=== PATIENT | male | born 1995 | race Two or more races ===

== ENCOUNTER 2019-08-15 17:01 | Emergency (ER) | payer SELFPAY ==
--- NOTE | 2019-08-15 17:20 | ER Document Report ---
ED Medical Screen (RME) - General Chief Complaint: Psych Problem Stated Complaint: POSSIBLE ALLERGIC REACTION Time Seen by Provider: 08/15/19 17:12 Mode of Arrival: Ambulatory Information source: Patient Notes: 24-year-old male patient with multiple psychiatric diagnoses presenting to the emergency department with "not feeling right". Patient's girlfriend dropped him off at the front door stating that he was unresponsive and may be having an allergic reaction to something. Patient reports he is felt excessively tired lately and has had nausea, vomiting, diarrhea and passive suicidal thoughts. He has not thought about plan. He is slow to respond and not very interactive. He has a very flat affect. He denies any homicidal ideation. I have greeted and performed a rapid initial assessment of this patient. A comprehensive ED assessment and evaluation of the patient, analysis of test results and completion of the medical decision making process will be conducted by additional ED providers. I have specifically instructed the patient or family members with the patient to immediately return to any nursing staff should anything change in the patient's condition or with their chief complaint. - Related Data Allergies/Adverse Reactions: No Known Allergies Allergy (Unverified 08/15/19 17:07) Physical Exam - Vital signs Vitals: Temp Pulse Resp BP Pulse Ox 98.2 F 118 H 16 127/74 H 98 08/15/19 17:06 08/15/19 17:06 08/15/19 17:06 08/15/19 17:06 08/15/19 17:06 Course - Vital Signs Vital signs: Temp Pulse Resp BP Pulse Ox 98.2 F 118 H 16 127/74 H 98 08/15/19 17:06 08/15/19 17:06 08/15/19 17:06 08/15/19 17:06 08/15/19 17:06
--- NOTE | 2019-08-15 17:26 | ER Document Report ---
ED Allergic Reaction - General Mode of Arrival: Ambulatory <ORVILLE CRESPO - Last Filed: 08/15/19 17:25> <SAAD ATWOOD - Last Filed: 08/15/19 19:22> - General Chief Complaint: Psych Problem Stated Complaint: POSSIBLE ALLERGIC REACTION Time Seen by Provider: 08/15/19 17:12 - HPI Notes: Chief complaint: Unsteady gait, slurred speech and mild confusion 24-year-old male followed by [facility] with history of PTSD and ADHD seen now after being encouraged to come here by his girlfriend because she notes that he has developed an unsteady gait, slurred speech and mild confusion over the last several days. He has been on Lexapro and Adderall long-term. He was apparently recently prescribed Ambien 10 mg and filled a prescription for 30 tablets on August 09. Girlfriend indicates that there were only about 8 pills left in the bottle this morning and she feels that he has been abusing the medication. The remainder the pills were dumped into the toilet this morning. Patient denies any suicidal intent but says that he " just wanted to get some better sleep for the last several nights". Patient denies any abuse of street drugs. He denies use of alcohol. He denies any auditory visual hallucinations. (SAAD ATWOOD) - Related Data Allergies/Adverse Reactions: No Known Allergies Allergy (Unverified 08/15/19 17:07) Past Medical History - General Information source: Patient - Social History Smoking Status: Never Smoker Frequency of alcohol use: None Patient has suicidal ideation: Yes Patient has homicidal ideation: No <ORVILLE CRESPO - Last Filed: 08/15/19 17:25> - General Information source: Patient, Friend - Social History Family History: Reviewed & Not Pertinent <SAAD ATWOOD - Last Filed: 08/15/19 19:22> Review of Systems <SAAD ATWOOD - Last Filed: 08/15/19 19:22> - Review of Systems Notes: Constitutional: Negative for fever. HENT: Negative for sore throat. Eyes: Negative for visual changes. Cardiovascular: Negative for chest pain. Respiratory: Negative for shortness of breath. Gastrointestinal: Negative for abdominal pain, vomiting or diarrhea. Genitourinary: Negative for dysuria. Musculoskeletal: Negative for back pain. Skin: Negative for rash. Neurological: As per HPI. 10 point ROS negative except as marked above and in HPI. (SAAD ATWOOD) Physical Exam <SAAD ATWOOD - Last Filed: 08/15/19 19:22> - Vital signs Vitals: Temp Pulse Resp BP Pulse Ox 98.2 F 118 H 16 127/74 H 98 08/15/19 17:06 08/15/19 17:06 08/15/19 17:06 08/15/19 17:06 08/15/19 17:06 - Notes Notes: GENERAL: Well-developed well-nourished appearing mildly ataxic and exhibiting mild slurring of speech. SKIN: Good turgor no rashes. HEAD: Normocephalic atraumatic. EYES: PERRLA. EOMI. Conjunctivae and sclerae clear. EARS: CANALS AND TMS CLEAR. NOSE: CLEAR. MOUTH: Moist mucosa. Good dentition. No stridor or edema. No drooling. NECK: Supple. No masses or thyromegaly. No adenopathy. Carotids 2+ without bruits. No JVD. BACK: Symmetrical without tenderness. CHEST: Respirations unlabored. Breath sounds clear and symmetrical. HEART: Regular rhythm. No murmur gallop or rub. ABDOMEN: Soft nontender without masses, organomegaly or rebound. Bowel sounds normally active. No bruits. GENITALIA: Deferred. EXTREMITIES: No edema. No calf tenderness. Cap refill less than 1.5 seconds. Dorsalis pedis and posterior tibial pulses 3+ and symmetrical. NEUROLOGICAL: GCS 15. Slightly sleepy but is oriented x3. Mildly ataxic gait. Speech is mildly slurred. Cranial nerves II through XII intact. Sensory and and motor normal. Normal tone. PSYCHIATRIC: Patient is appropriately oriented and does not appear to be hallucinating but there is a definite latency to his answers which are generally appropriate. (SAAD ATWOOD) Course - Laboratory Result Diagrams: 08/15/19 17:35 08/15/19 17:35 <SAAD ATWOOD - Last Filed: 08/15/19 19:22> - Re-evaluation Re-evalutation: 08/15/19 19:20 This patient appears to be exhibiting effects of excessive dosage of Ambien. I asked him to stop this medication and he can follow-up with [facility]. He does not appear to meet criteria for IVC at this time and will be released with his girlfriend (SAAD ATWOOD) - Vital Signs Vital signs: Temp Pulse Resp BP Pulse Ox 98.2 F 118 H 16 127/74 H 98 08/15/19 17:06 08/15/19 17:06 08/15/19 17:06 08/15/19 17:06 08/15/19 17:06 - Laboratory Laboratory results interpreted by me: 08/15/19 17:35 Potassium 3.5 L Carbon Dioxide 31 H BUN 5 L Glucose 116 H Salicylates < 1.0 L Acetaminophen < 10 L Discharge <ORVILLE CRESPO - Last Filed: 08/15/19 17:25> <SAAD ATWOOD - Last Filed: 08/15/19 19:22> - Discharge Clinical Impression: ADHD, PTSD Ambien accidental overdose Qualifiers: Encounter type: initial encounter Qualified Code(s): T42.6X1A - Poisoning by other antiepileptic and sedative-hypnotic drugs, accidental (unintentional), initial encounter Condition: Stable Disposition: HOME, SELF-CARE Additional Instructions: Do not take additional doses of Ambien. Follow-up with your [facility] as soon as possible. Return here as needed.
[2019-08-15 17:47] LABS: ABSOLUTE EOSINOPHILS # (AUTO) 0.1 10^3/uL (0.0-0.6); ABSOLUTE MONOCYTES (AUTO) 0.4 10^3/uL (0.1-1.4); BASOPHILS % (AUTO) 0.4 % (0-2); MEAN CORPUSCULAR HEMOGLOBIN 28.7 pg (27.0-33.4); RED CELL DISTRIBUTION WIDTH 13.1 % (11.5-14.0); TOTAL CELLS COUNTED % (AUTO) 100 %
[2019-08-15 17:54] LABS: APPEARANCE,URINE CLEAR; BILIRUBIN,URINE NEGATIVE (NEGATIVE); COLOR,URINE COLORLESS; GLUCOSE, URINE NEGATIVE (NEGATIVE); KETONES,URINE NEGATIVE (NEGATIVE); LEUKOCYTE ESTERASE,URINE NEGATIVE (NEGATIVE); NITRITE,URINE NEGATIVE (NEGATIVE); PROTEIN,URINE NEGATIVE (NEGATIVE); URINE SPECIFIC GRAVITY 1.001; UROBILINOGEN,URINE NEGATIVE mg/dL (<2.0)
[2019-08-15 18:00] LABS: ALBUMIN 4.8 g/dL (3.5-5.0); ALKALINE PHOSPHATASE 77 U/L (38-126); ANION GAP 7 (5-19); ASPARTATE AMINO TRANSFERASE 22 U/L (17-59); BILIRUBIN,TOTAL 0.3 mg/dL (0.2-1.3); BLOOD UREA NITROGEN 5 mg/dL (7-20); CALCIUM 9.6 mg/dL (8.4-10.2); CARBON DIOXIDE 31 mmol/L (22-30); CHLORIDE 101 mmol/L (98-107); GLUCOSE 116 mg/dL (75-110); POTASSIUM 3.5 mmol/L (3.6-5.0); TOTAL PROTEIN 7.8 g/dL (6.3-8.2)
[2019-08-15 18:01] LABS: ABSOLUTE LYMPHOCYTES (AUTO) 1.7 10^3/uL (0.5-4.7); EOSINOPHILS % (AUTO) 0.8 % (0-6); HEMATOCRIT 40.4 % (37.9-51.0); HEMOGLOBIN 14.2 g/dL (13.5-17.0); MEAN CORPUSCULAR HGB CONC 35.1 g/dL (32.0-36.0); MEAN CORPUSCULAR VOLUME 82 fl (80-97); MONOCYTES % (AUTO) 4.5 % (3-13); PLATELET COUNT 266 10^3/uL (150-450); RED BLOOD COUNT 4.94 10^6/uL (4.35-5.55); SEGMENTED NEUTROPHILS % (AUTO) 73.3 % (42-78); WHITE BLOOD COUNT 8.2 10^3/uL (4.0-10.5)
[2019-08-15 18:02] LABS: ACETAMINOPHEN < 10 ug/mL (10-30); ALCOHOL < 10 mg/dL (NONE DETECTED); SALICYLATE < 1.0 mg/dL (2.0-20.0)
[2019-08-15 18:10] LABS: URINE BARBITURATES SCREEN NEGATIVE; URINE BENZODIAZEPINES SCREEN NEGATIVE; URINE COCAINE SCREEN NEGATIVE; URINE MARIJUANA (THC) SCREEN NEGATIVE; URINE METHADONE SCREEN NEGATIVE; URINE PHENCYCLIDINE SCREEN NEGATIVE
[2019-08-15 18:11] LABS: URINE AMPHETAMINES SCREEN UNCONFIRMED POSITIVE
[2019-08-15 19:58] VITALS: BP 131/84
--- NOTE | 2019-08-15 20:34 | PSYCHOLOGICAL NOTE ---
Psych Note - Psych Note Date seen by psych provider: 08/15/19 Time seen by psych provider: 17:30 Psych Note: Patient is a 24-year-old male who presents to ED via POV with concerns for a possible allergic reaction to prescription medication. Patient was sitting in chair using his cell phone when patient entered the room. Clinician notes patient's nails have been painted a teal greenish color. Complains of difficulty keeping balance, seeing double, lack of sleep and being lethargic for approximately 2 weeks. Patient denies suicidal ideation. Patient reports last suicidal ideation was last month; however patient denies he had means, intent, and plan. Patient denies wanting to . Patient stated the suicidal ideation focused on financial stressors, and stated that stressor has been resolved as he is now receiving income from the [place]. Patient reports taking a "really powerful sleep medication" that results and "forgetfulness." Patient reports that he sometimes takes 2 Ambien at night to sleep although he is prescribed to take 1 at night. Patient denies misuse of prescription Adderall. Patient verbalized a desire to discontinue use of Ambien. Reports mental health diagnoses of PTSD, depression, and anxiety. 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 Patient has been from the [employer] approximately 1 year. Patient saves medication management and mental health services through the [facility] on [address]. Patient reports seeing his therapist every 3 months. Patient reports the frequency of clinical contact is appropriate. Patient is prescribed Adderall 10 mg, twice a day; Lexapro 20 mg, daily; and Ambien 10 mg, at bedtime. Reports having no more Ambien in the home. Patient was provided psychoeducation regarding the misuse/abuse of prescription medication, especially Adderall and Ambien. Patient was also provided psychoeducation regarding his PTSD diagnosis in combination with prescription Adderall and Ambien. Patient was encouraged to reach out to his psychiatrist at the [facility] for appropriate medications. Patient is alert and oriented to person, place, time and circumstance. Mood is normal with congruent affect. Patient denies suicidal and homicidal ideations. Delusions are absent and behavior is congruent with an intact reality based presentation (i.e., organized and linear through processes). There is no observed behavior that suggests patient is responding to internal stimuli. Patient is able to engage in organized, rational thought processes. Patient is able to express needs and wants in a logical manner. Patient denies current auditory and visual hallucinations. Eye contact is appropriate. Conversational speech is within normal rate, tone, and prosody. Intellectual ability appears to be within average range. Attention and concentration are good. Insight, judgment and impulse control are currently poor. Impression/Plan: Patient is cleared from acute psychiatric services. Patient denies suicidal and homicidal ideations. There is no observed behavior that suggests patient is responding to internal stimuli. Patient engaged in organized, rational, linear thought processes and was able to express needs and wants in a logical manner. There are no reported suicidal gestures. Patient was observed with a steady gait, no slurred speech, and is able to engage appropriately with clinician and staff. Patient's presenting concerns can be best conceptualized by side effects from the prescription Ambien (memory loss, mental/mood/behavior changes such as new/worsening depression, abnormal thoughts, thoughts of suicide, hallucinations, confusion, agitation, aggressive behavior, anxiety). Patient was provided psychoeducation regarding his prescription medication and the medication being not indicated for those with a diagnosis of PTSD. Patient admits taking 2 Ambien at times instead of the 1 Ambien he is actually prescribed. Patient was charged to the care of his girlfriend with whom he resides. Girlfriend agreed to be responsible for medication management and administration, removing access to items that could be used for suicidal purposes, to facilitate follow-up with his providers at the [facility], and observe for signs of increased emotional distress. Patient was provided a mental health resource sheet with the contact information for [facility] highlighted. Dr. Rust was consulted on the care and management of this patient; attending physician is in agreement with recommendations and disposition.
--- NOTE | 2019-08-16 09:06 | EKG REPORT ---
SEVERITY:- NORMAL ECG - SINUS RHYTHM : Confirmed by: Jessica Almendarez MD 16-Aug-2019 09:06:11
== END 2019-08-15 20:01 | disposition home or self-care (01) ==
LOC: ER 17:01
DX: T42.6X1A Poisoning by other antiepileptic and sedative-hypnotic drugs, accidental (unintentional), initial encounter (principal); F90.9 Attention-deficit hyperactivity disorder, unspecified type; F43.10 Post-traumatic stress disorder, unspecified; R45.851 Suicidal ideations; Z79.899 Other long term (current) drug therapy
CPT/HCPCS: 36415; 80053; 80307; 81001; 85025; 93005; 93010; 99285